=== PATIENT | male | born 1975 | race Hispanic/Latino ===

== ENCOUNTER 2020-10-24 11:04 | Observation (INO) | payer OTHER ==
--- NOTE | 2020-10-24 11:10 | Event Note ---
ED Screening Note ED Screening Note: 45-year-old male with past medical history of A. 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 He states that he is currently taking Zithromax and began having palpitations went to follow-up with his with his barrel waterer and was found to have A. fib with RVR. Currently states he gets mild lightheadedness when he changes his position but no chest pain or palpitation hemoptysis no hematemesis no nausea vomiting. This initial assessment/diagnostic orders/clinical plan/treatment(s) is/are subject to change based on patients health status, clinical progression and re- assessment by fellow clinical providers in the ED. Further treatment and workup at subsequent clinical providers discretion. Patient/guardian urged not to elope from the ED as their condition may be serious if not clinically assessed and managed. Initial orders include: Chest pain will admit obtain labs and repeat EKG and rate control his A. fib
--- NOTE | 2020-10-24 11:31 | Emergency Department Report ---
ED Chest Pain HPI - General Chief Complaint: Arrhythmia/Palpitations Stated Complaint: AFIB Time Seen by Provider: 10/24/20 11:21 Source: patient Mode of arrival: Ambulatory Limitations: No Limitations - History of Present Illness Initial Comments: This is a 45-year-old male presents to the emergency department, sent in by Dr. Chavez, after the patient was found to be in atrial fibrillation with RVR. The patient does have a history of paroxysmal atrial fibrillation but the patient says that it has been a long time since he had a heart rate as fast as today. Patient woke up with some palpitations but he denies any chest pain, shortness of breath. Today was the first day that he has seen Dr. Chavez who previously saw someone from [facility] cardiology. He denies any tobacco or illicit drug use. The patient says that the first time he experienced the atrial fibrillation was after consuming a large amount of caffeine. Sometimes it is triggered by dark chocolate, or alcohol, which he only consumes sparingly. Sometimes the patient says that he will feel these palpitations but that they will go away shortly after they began without any medication or intervention and this is happened about 2 times in the past 6 months. He denies any lower extremity swelling, fever, nausea, vomiting, back pain or diaphoresis. - Related Data Allergies Allergy/AdvReac Type Severity Reaction Status Date / Time amoxicillin [From Augmentin] AdvReac Vomiting Verified 10/24/20 11:09 clavulanic acid AdvReac Vomiting Verified 10/24/20 11:09 [From Augmentin] Heart Score - HEART Score History: Slightly suspicious EKG: Non-specific Age: 45-65 Risk factors: No known risk factors Troponin: < normal limit HEART Score: 2 - Critical Actions Critical Actions: 0-3 pts:0.9-1.7%risk of adverse cardiac event.Candidate for discharge ED Review of Systems ROS: Stated complaint: AFIB Other details as noted in HPI Comment: All other systems reviewed and negative Constitutional: denies: chills, fever Eyes: denies: eye pain, vision change ENT: denies: ear pain, throat pain Respiratory: denies: cough, shortness of breath Cardiovascular: palpitations. denies: chest pain Gastrointestinal: denies: abdominal pain, vomiting Genitourinary: denies: dysuria, discharge Musculoskeletal: denies: back pain, arthralgia Skin: denies: rash, lesions Neurological: denies: headache, weakness ED Past Medical Hx - Social History Smoking Status: Never Smoker Substance Use Type: None ED Physical Exam - General Limitations: No Limitations - Other Other exam information: GENERAL: The patient is well-developed well-nourished. HENT: Normocephalic. Atraumatic. Patient has moist mucous membranes. EYES: Extraocular motions are intact. NECK: Supple. Trachea is midline. CHEST/LUNGS: Clear to auscultation. There is no respiratory distress noted. HEART/CARDIOVASCULAR: Irregular rhythm. Moderate tachycardia. ABDOMEN: Abdomen is soft, nontender. Patient has normal bowel sounds. SKIN: Skin is warm and dry. NEURO: The patient is awake, alert, and oriented. The patient is cooperative. The patient has no focal neurologic deficits. Normal speech. MUSCULOSKELETAL: There is no tenderness or deformity. There is no limitation range of motion. ED Course Vital Signs 10/24/20 10/24/20 10/24/20 11:48 11:56 13:25 Pulse Rate 140 H 122 H 143 H Respiratory 14 15 Rate Blood Pressure 105/76 Blood Pressure 105/76 97/72 [Left] O2 Sat by Pulse 99 98 Oximetry - Consultations Consultation #1: 10/24/20 14:18 Patient was seen by Dr. Barney in the emergency department. EDUARDA score - Eduarda Score Age > 65: (0) No Aspirin use within the Past 7 Days: (0) No 3 or more CAD Risk Factors: (0) No 2 or more Angina events in past 24 hrs: (0) No Known CAD with more than 50% Stenosis: (0) No Elevated Cardiac Markers: (0) No ST Deviation Greater than 0.5mm: (0) No EDUARDA Score: 0 ED Medical Decision Making - Lab Data Result diagrams: 10/24/20 11:18 10/24/20 11:18 Lab Results 10/24/20 10/24/20 10/24/20 Range/Units 11:18 11:18 11:18 WBC 9.7 (4.5-11.0) K/mm3 RBC 5.33 H (3.65-5.03) M/mm3 Hgb 16.5 H (11.8-15.2) gm/dl Hct 47.9 H (35.5-45.6) % MCV 90 (84-94) fl MCH 31 (28-32) pg MCHC 35 H (32-34) % RDW 13.1 L (13.2-15.2) % Plt Count 284 (140-440) K/mm3 Lymph % (Auto) 27.3 (13.4-35.0) % [place] % (Auto) 11.4 H (0.0-7.3) % Eos % (Auto) 1.3 (0.0-4.3) % Baso % (Auto) 0.9 (0.0-1.8) % Lymph # (Auto) 2.6 (1.2-5.4) K/mm3 [place] # (Auto) 1.1 H (0.0-0.8) K/mm3 Eos # (Auto) 0.1 (0.0-0.4) K/mm3 Baso # (Auto) 0.1 (0.0-0.1) K/mm3 Seg Neutrophils % 59.1 (40.0-70.0) % Seg Neutrophils # 5.7 (1.8-7.7) K/mm3 PT 13.0 (12.2-14.9) Sec. INR 0.99 (0.87-1.13) APTT 33.4 (24.2-36.6) Sec. Sodium 140 (137-145) mmol/L Potassium 4.3 (3.6-5.0) mmol/L Chloride 102.8 (98-107) mmol/L Carbon Dioxide 31 H (22-30) mmol/L Anion Gap 11 mmol/L BUN 13 (9-20) mg/dL Creatinine 1.0 (0.8-1.3) mg/dL Estimated GFR > 60 ml/min BUN/Creatinine Ratio 13 % Glucose 106 H (75-100) mg/dL Calcium 9.0 (8.4-10.2) mg/dL Troponin T (0.00-0.029) ng/mL TSH (0.270-4.200) mlU/mL 10/24/20 10/24/20 Range/Units 11:18 11:40 WBC (4.5-11.0) K/mm3 RBC (3.65-5.03) M/mm3 Hgb (11.8-15.2) gm/dl Hct (35.5-45.6) % MCV (84-94) fl MCH (28-32) pg MCHC (32-34) % RDW (13.2-15.2) % Plt Count (140-440) K/mm3 Lymph % (Auto) (13.4-35.0) % [place] % (Auto) (0.0-7.3) % Eos % (Auto) (0.0-4.3) % Baso % (Auto) (0.0-1.8) % Lymph # (Auto) (1.2-5.4) K/mm3 [place] # (Auto) (0.0-0.8) K/mm3 Eos # (Auto) (0.0-0.4) K/mm3 Baso # (Auto) (0.0-0.1) K/mm3 Seg Neutrophils % (40.0-70.0) % Seg Neutrophils # (1.8-7.7) K/mm3 PT (12.2-14.9) Sec. INR (0.87-1.13) APTT (24.2-36.6) Sec. Sodium (137-145) mmol/L Potassium (3.6-5.0) mmol/L Chloride (98-107) mmol/L Carbon Dioxide (22-30) mmol/L Anion Gap mmol/L BUN (9-20) mg/dL Creatinine (0.8-1.3) mg/dL Estimated GFR ml/min BUN/Creatinine Ratio % Glucose (75-100) mg/dL Calcium (8.4-10.2) mg/dL Troponin T < 0.010 (0.00-0.029) ng/mL TSH 3.810 (0.270-4.200) mlU/mL - EKG Data -: EKG Interpreted by Me - EKG Data Interpretation: other (Atrial fibrillation with a rate of 142 bpm, normal axis, Q waves to the septal leads. No ST elevation myocardial infarction.) - Radiology Data Radiology results: image reviewed interpreted by me: Chest x-ray does not show any acute process. There are no pleural effusions, obvious pneumonia and there is no pneumothorax. No significant cardiomegaly. - Medical Decision Making This patient was sent in by his paperhanger pipe after he was found to be in atrial fibrillation with RVR. The patient does have some history of paroxysmal A. fib but it has been a while since he was in sustained A. fib. The patient's complaint was palpitations but he denies any chest pain. EKG here also shows atrial fibrillation with RVR with a heart rate of about 140. The patient was seen by myself and then seen by cardiology in the emergency department. He was given a dose of IV Cardizem which did help with rate control with a heart rate of about 90 to 115 bpm, but then tachycardia came back. Cardiology requested the patient be placed on amiodarone so he was given a 150 mg bolus followed by initiation of the amiodarone drip. Chest x-ray does not show any pneumonia, pleural effusions, pneumothorax, or any other acute process. The patient's labs have been unremarkable thus far including CBC, metabolic panel and a negative first troponin. The patient will be admitted to the hospital for further evaluation and treatment was accepted for admission by the hospitalist, Dr. Fuentes. Critical Care Time: Yes Critical care time in (mins) excluding proc time.: 35 Critical care attestation.: If time is entered above; I have spent that time in minutes in the direct care of this critically ill patient, excluding procedure time. Due to the immediate potential for life-threatening deterioration due to underlying cardiac condition, I spent 35 minutes of critical care time with the patient. Critical Care Time: 35 minutes ED Disposition Clinical Impression: Paroxysmal atrial fibrillation with RVR, Palpitations Disposition: OP ADMIT IP TO THIS HOSP Is pt being admited?: Yes Condition: Fair Time of Disposition: 12:14
[2020-10-24 11:33] LABS: Basophils # (Auto) 0.1 K/mm3 (0.0-0.1); Basophils % (Auto) 0.9 % (0.0-1.8); Eosinophils # (Auto) 0.1 K/mm3 (0.0-0.4); Eosinophils % (Auto) 1.3 % (0.0-4.3); Hematocrit 47.9 % (35.5-45.6); Hemoglobin 16.5 gm/dl (11.8-15.2); Lymphocytes # (Auto) 2.6 K/mm3 (1.2-5.4); Lymphocytes % (Auto) 27.3 % (13.4-35.0); Mean Corpuscular HGB Conc 35 % (32-34); Mean Corpuscular Volume 90 fl (84-94); Monocytes # (Auto) 1.1 K/mm3 (0.0-0.8); Monocytes % (Auto) 11.4 % (0.0-7.3); Platelet Count 284 K/mm3 (140-440); Red Blood Count 5.33 M/mm3 (3.65-5.03); Red Cell Distribution Width 13.1 % (13.2-15.2)
--- NOTE | 2020-10-24 11:35 | Consultation ---
History of Present Illness Consult date: 10/24/20 Requesting physician: DIAMOND DUMONT Consult reason: atrial fibrillation History of present illness: The pt is a 45YO male with a past medical history of atrial fibrillation. He was seen in our office today (old new pt) by Dr. Javier Chavez with c/o palpitations and was found to be in AFib RVR HR 170s and was thus referred to [facility] ED for further eval/management. Pt reports a remote history of palpitations and presumed atrial fibrillation precipitated by energy drinks in 2018 - he was seen in our office by Dr. Borrero. Pt states that in the past, he has taken PO cardizem on an as needed basis which has controlled his arrhythmia. Pt reports that this morning, he awoke with palpitations and knew he was "back in AFib". He denies any chest pain, SOB, n/v, diaphoresis, dizziness or syncope. tte done 10/2017 showed EF 55%, no significant abnormalities. Treadmill stress test done 10/2017 showed very good exercise tolerance, negative for angina or ischemia, pt c/o palpitations and was noted to have isolated occasional PVCs which were thought to have caused palpitations. CCTA done 10/2017 showed calcium score of 0. Past History Past Medical History: atrial fib Medications and Allergies Allergies Allergy/AdvReac Type Severity Reaction Status Date / Time amoxicillin [From Augmentin] AdvReac Vomiting Verified 10/24/20 11:09 clavulanic acid AdvReac Vomiting Verified 10/24/20 11:09 [From Augmentin] Review of Systems Constitutional: no weight loss, no weight gain, no fever, no chills, no sweats Ears, nose, mouth and throat: no ear pain, no nose pain, no sinus pressure, no sinus pain Cardiovascular: palpitations, rapid/irregular heart beat, no chest pain, no orthopnea, no edema, no syncope, no shortness of breath, no dyspnea on exertion, no high blood pressure, no leg edema Respiratory: no cough, no shortness of breath, no dyspnea on exertion, no congestion, no wheezing, no pain on inspiration Gastrointestinal: no abdominal pain, no nausea, no vomiting, no diarrhea, no constipation, no change in bowel habits Genitourinary Male: no dysuria, no hematuria, no flank pain, no discharge, no urinary frequency, no urinary hesitancy Musculoskeletal: no neck stiffness, no neck pain, no shooting arm pain, no arm numbness/tingling, no low back pain, no shooting leg pain Integumentary: no rash, no pruritis, no redness, no sores, no wounds Neurological: no head injury, no paralysis, no weakness, no parathesias, no numbness, no tingling, no seizures, no syncope Psychiatric: no anxiety Endocrine: no cold intolerance, no heat intolerance Hematologic/Lymphatic: no easy bruising Allergic/Immunologic: no urticaria Physical Examination General appearance: no acute distress HEENT: Positive: PERRL, Normocephaly, Mucus Membranes Moist Neck: Positive: neck supple, trachea midline Cardiac: Positive: irregularly irregular, S1/S2 Lungs: Positive: Decreased Breath Sounds Neuro: Positive: Grossly Intact Abdomen: Negative: Tender Skin: Negative: Rash Musculoskeletal: No Pain Extremities: Absent: edema Results 10/24/20 11:18 10/24/20 11:18 - Imaging and Cardiology Echo: report reviewed ( 10/2017 showed EF 55%, no significant abnormalities. ) EKG: report reviewed, image reviewed EKG interpretations - Telemetry EKG Rhythm: Atrial Fibrillation - EKG Supraventricular dysrhythmia: atrial fibrillation Assessment and Plan Pt presents with AFib RVR - h/o palpitations and presumed paroxysmal AFib precipitated by energy drinks in 2018. Cardizem IV x 1 dose given - HR remains in 120s with SBP 100s. Optimize HR - initiate IV amiodarone. Pt with current CHADS score of 0 and thus no indication for initiation of systemic AC. Obtain tte. Cont observation on telemetry overnight. Will follow. The patient has been seen in conjunction with Dr. Barney who agrees with the assessment and plan of care. - Patient Problems (1) Paroxysmal atrial fibrillation with RVR Current Visit: Yes Status: Acute
[2020-10-24] MEDS ORDERED: dilTIAZem 25 MG/5 ML INJ IV ONE (11:38)
[2020-10-24] MEDS ORDERED: SODIUM CHLORIDE 0.9% 1000 ML 1,000 ML IV ONE (11:38)
[2020-10-24 11:48] LABS: INR 0.99 (0.87-1.13); Partial Thromboplastin Time 33.4 Sec. (24.2-36.6)
[2020-10-24 12:00] LABS: BUN/Creatinine Ratio 13; Blood Urea Nitrogen 13 mg/dL (9-20); Hemolysis Index 4
--- NOTE | 2020-10-24 13:04 | XRay Report ---
CHEST 1 VIEW INDICATION / CLINICAL INFORMATION: Palpitations. COMPARISON: None available. FINDINGS: SUPPORT DEVICES: None. HEART / MEDIASTINUM: No significant abnormality. LUNGS / PLEURA: No significant pulmonary or pleural abnormality. No pneumothorax. ADDITIONAL FINDINGS: No significant additional findings. IMPRESSION: No acute pulmonary or pleural abnormality Signer Name: Xu Knight MD FACR Signed: 10/24/2020 1:00 PM Workstation Name: [id number]
[2020-10-24] MEDS ORDERED: AMIODARONE 150 MG in DEXTROSE 5% IN WATER 97 ML IV ONE (13:30)
[2020-10-24] MEDS ORDERED: AMIODARONE 900 MG in DEXTROSE 5% IN WATER 482 ML IV SCH (14:00)
--- NOTE | 2020-10-24 23:08 | History and Physical Report ---
History of Present Illness Date of examination: 10/24/20 Date of admission: 10/24/20 12:14 Chief complaint: Palpitations since carver hand History of present illness: This is a 45-year-old male presents to the emergency department, sent in by Dr. Chavez, after the patient was found to be in atrial fibrillation with RVR. The patient does have a history of paroxysmal atrial fibrillation but the patient says that it has been a long time since he had a heart rate as fast as today. Patient woke up with some palpitations but he denies any chest pain, sh ortness of breath. Today was the first day that he has seen Dr. Chavez who previously saw someone from [facility] cardiology. He denies any tobacco or illicit drug use. The patient says that the first time he experienced the atrial fibrillation was after consuming a large amount of caffeine. Sometimes it is triggered by dark chocolate, or alcohol, which he only consumes sparingly. Sometimes the patient says that he will feel these palpitations but that they will go away shortly after they began without any medication or intervention and this is happened about 2 times in the past 6 months. He denies any lower extremity swelling, fever, nausea, vomiting, back pain or diaphoresis. Heart Score - HEART Score History: Slightly suspicious EKG: Non-specific Age: 45-65 Risk factors: No known risk factors Troponin: < normal limit HEART Score: 2 - Critical Actions Critical Actions: 0-3 pts:0.9-1.7%risk of adverse cardiac event.Candidate for discharge past medical history None past surgical history None Family history HTN - Social History Smoking Status: Never Smoker Substance Use Type: None Review of Systems ROS: Stated complaint: AFIB Other details as noted in HPI Comment: All other systems reviewed and negative Constitutional: denies: chills, fever Eyes: denies: eye pain, vision change ENT: denies: ear pain, throat pain Respiratory: denies: cough, shortness of breath Cardiovascular: palpitations. denies: chest pain Gastrointestinal: denies: abdominal pain, vomiting Genitourinary: denies: dysuria, discharge Musculoskeletal: denies: back pain, arthralgia Skin: denies: rash, lesions Neurological: denies: headache, weakness Past History Past Medical History: atrial fib Medications and Allergies Allergies Allergy/AdvReac Type Severity Reaction Status Date / Time amoxicillin [From Augmentin] AdvReac Vomiting Verified 10/24/20 11:09 azithromycin [From Zithromax] AdvReac Unknown Verified 10/24/20 15:53 clavulanic acid AdvReac Vomiting Verified 10/24/20 11:09 [From Augmentin] Home Medications Medication Instructions Recorded Confirmed Last Taken Type No Known Home Medications [No 10/24/20 10/24/20 Unknown History Reported Home Medications] Active Meds: Active Medications Amiodarone HCl 900 mg/ (Dextrose) 500 mls @ 33.333 mls/hr IV DIRECT LEVON; Protocol Last Titration: 10/24/20 20:10 Dose: 0.5 mg/min, 16.667 mls/hr Documented by: Exam - Constitutional Vitals: Temp Pulse Resp BP Pulse Ox 98.6 F 94 H 16 93/58 96 10/24/20 20:03 10/24/20 20:03 10/24/20 20:03 10/24/20 20:03 10/24/20 20:03 General appearance: Present: no acute distress, well-nourished - EENT Eyes: Present: PERRL ENT: hearing intact, clear oral mucosa - Neck Neck: Present: supple, normal ROM - Respiratory Respiratory effort: normal Respiratory: bilateral: CTA - Cardiovascular Rhythm: irregularly irregular Heart Sounds: Present: S1 & S2. Absent: rub, click - Extremities Extremities: no ischemia, pulses symmetrical, No edema Peripheral Pulses: within normal limits - Abdominal General gastrointestinal: Present: soft, non-tender, non-distended, normal bowel sounds Male genitourinary: Present: normal - Integumentary Integumentary: Present: clear, warm, dry - Musculoskeletal Musculoskeletal: gait normal, strength equal bilaterally - Psychiatric Psychiatric: appropriate mood/affect, intact judgment & insight - Neurologic Neurologic: CNII-XII intact, moves all extremities - Allied Health Allied health notes reviewed: nursing, case management HEART Score - HEART Score History: Moderately suspicious EKG: Non-specific Age: 45-65 Risk factors: No known risk factors Troponin: Troponin T < 0.010 ng/mL (0.00-0.029) 10/24/20 11:18 Troponin: < normal limit HEART Score: 3 - Critical Actions Critical Actions: 0-3 pts:0.9-1.7%risk of adverse cardiac event.Candidate for discharge Results - Labs CBC & Chem 7: 10/24/20 11:18 10/25/20 04:48 Labs: Laboratory Last Values WBC 9.7 K/mm3 (4.5-11.0) 10/24/20 11:18 RBC 5.33 M/mm3 (3.65-5.03) H 10/24/20 11:18 Hgb 16.5 gm/dl (11.8-15.2) H 10/24/20 11:18 Hct 47.9 % (35.5-45.6) H 10/24/20 11:18 MCV 90 fl (84-94) 10/24/20 11:18 MCH 31 pg (28-32) 10/24/20 11:18 MCHC 35 % (32-34) H 10/24/20 11:18 RDW 13.1 % (13.2-15.2) L 10/24/20 11:18 Plt Count 284 K/mm3 (140-440) 10/24/20 11:18 Lymph % (Auto) 27.3 % (13.4-35.0) 10/24/20 11:18 [place] % (Auto) 11.4 % (0.0-7.3) H 10/24/20 11:18 Eos % (Auto) 1.3 % (0.0-4.3) 10/24/20 11:18 Baso % (Auto) 0.9 % (0.0-1.8) 10/24/20 11:18 Lymph # (Auto) 2.6 K/mm3 (1.2-5.4) 10/24/20 11:18 [place] # (Auto) 1.1 K/mm3 (0.0-0.8) H 10/24/20 11:18 Eos # (Auto) 0.1 K/mm3 (0.0-0.4) 10/24/20 11:18 Baso # (Auto) 0.1 K/mm3 (0.0-0.1) 10/24/20 11:18 Seg Neutrophils % 59.1 % (40.0-70.0) 10/24/20 11:18 Seg Neutrophils # 5.7 K/mm3 (1.8-7.7) 10/24/20 11:18 PT 13.0 Sec. (12.2-14.9) 10/24/20 11:18 INR 0.99 (0.87-1.13) 10/24/20 11:18 APTT 33.4 Sec. (24.2-36.6) 10/24/20 11:18 Sodium 140 mmol/L (137-145) 10/24/20 11:18 Potassium 4.3 mmol/L (3.6-5.0) 10/24/20 11:18 Chloride 102.8 mmol/L (98-107) 10/24/20 11:18 Carbon Dioxide 31 mmol/L (22-30) H 10/24/20 11:18 Anion Gap 11 mmol/L 10/24/20 11:18 BUN 13 mg/dL (9-20) 10/24/20 11:18 Creatinine 1.0 mg/dL (0.8-1.3) 10/24/20 11:18 Estimated GFR > 60 ml/min 10/24/20 11:18 BUN/Creatinine Ratio 13 % 10/24/20 11:18 Glucose 106 mg/dL (75-100) H 10/24/20 11:18 Calcium 9.0 mg/dL (8.4-10.2) 10/24/20 11:18 Troponin T < 0.010 ng/mL (0.00-0.029) 10/24/20 11:18 TSH 3.810 mlU/mL (0.270-4.200) 10/24/20 11:40 Short CBC 10/24/20 Range/Units 11:18 WBC 9.7 (4.5-11.0) K/mm3 Hgb 16.5 H (11.8-15.2) gm/dl Hct 47.9 H (35.5-45.6) % Plt Count 284 (140-440) K/mm3 BMP 10/24/20 10/25/20 11:18 04:48 Sodium 140 140 Potassium 4.3 4.1 Chloride 102.8 104.1 Carbon Dioxide 31 H 29 BUN 13 14 Creatinine 1.0 0.9 Glucose 106 H 101 H Calcium 9.0 9.0 Cardiac Enzymes 10/24/20 Range/Units 11:18 Troponin T < 0.010 (0.00-0.029) ng/mL Liver Function 10/25/20 Range/Units 04:48 Total Bilirubin 0.50 (0.1-1.2) mg/dL AST 20 (5-40) units/L ALT 20 (7-56) units/L Alkaline Phosphatase 78 (35-129) units/L Albumin 3.7 L (3.9-5) g/dL - Imaging and Cardiology EKG: report reviewed (A. fib with RVR heart rate of 160/min) [place]o/IV: Voiding Method Toilet Assessment and Plan Advance Directives: Yes (Full code) VTE prophylaxis?: Chemical Plan of care discussed with patient/family: Yes - Patient Problems (1) Atrial fibrillation with RVR Current Visit: Yes Status: Acute Plan to address problem: Patient initiated on amiodarone drip in the emergency room Heart rate has come down to 103 but still in atrial fibrillation Will defer to cardiology regarding cardioversion Cardiology to start Eliquis if necessary Patient also initiated on low-dose of diltiazem (2) Acute coronary syndrome Current Visit: Yes Status: Acute Plan to address problem: Echocardiogram for now Lexiscan Lexiscan (ordered (3) DVT prophylaxis Current Visit: Yes Status: Acute Plan to address problem: On anticoagulation and GI prophylaxis
[2020-10-24] MEDS ORDERED: ONDANSETRON 4 MG/2 ML INJ IV PRN (23:10)
[2020-10-24] MEDS ORDERED: ACETAMINOPHEN 325 MG TAB PO PRN (23:10)
[2020-10-24] MEDS ORDERED: HYDROmorphone 1 MG/1 ML INJ IV PRN (23:10)
[2020-10-24] MEDS ORDERED: oxyCODONE /ACETAMINOPHEN 5-325MG TAB PO PRN (23:10)
[2020-10-24] MEDS ORDERED: METOCLOPRAMIDE 10 MG/2 ML INJ IV PRN (23:10)
[2020-10-24] MEDS ORDERED: dilTIAZem CD 120 MG CAP PO SCH (23:40)
[2020-10-25] MEDS: HEPARIN 5,000 UNIT/1 ML VIAL SUB-Q SCH ×2 (00:49→12:23)
[2020-10-25 05:36] LABS: Alanine Aminotransferase 20 units/L (7-56); Albumin 3.7 g/dL (3.9-5); BUN/Creatinine Ratio 16; Blood Urea Nitrogen 14 mg/dL (9-20); Hemolysis Index 8
[2020-10-25] MEDS ORDERED: FAMOTIDINE 20 MG TAB PO SCH (10:00)
[2020-10-25] MEDS ORDERED: AMIODARONE 200 MG TAB PO SCH (11:00)
--- NOTE | 2020-10-25 11:22 | Progress Note ---
Assessment and Plan tte reviewed - EF 50-55%, trace MR, trace TR. tele reviewed - pt was in AFib CVR overnight and was noted to convert to NSR this AM, currently maintaining NSR. amio gtt infusing. Initiate PO amio 200mg daily now. D/c IV amio 2 hours following first PO amio dose. Encourage increased activity and ambulation today. Pending pt maintains NSR with activity and once IV amio is discontinued, pt may discharge home this afternoon from cardiology standpoint on PO amio 200mg daily. Pt with current CHADS score of 0 and thus no indication for initiation of systemic AC in regards to paroxysmal AFib. Follow up in our [place] office with Dr. Javier Chavez on 11/07/2020 @ 3:00PM. The patient has been seen in conjunction with Dr. Barney who agrees with the assessment and plan of care. - Patient Problems (1) Paroxysmal atrial fibrillation with RVR Current Visit: Yes Status: Acute Plan to address problem: --> NSR Subjective Date of service: 10/25/20 Principal diagnosis: AFib Interval history: pt resting in bed, feeling better. tele reviewed - was in AFib CVR overnight and was noted to convert to NSR this AM, currently maintaining NSR. amio gtt infusing. Objective Last Vital Signs Temp 98.2 F 10/25/20 04:14 Pulse 97 H 10/25/20 04:14 Resp 16 10/25/20 04:14 BP 97/63 10/25/20 04:28 Pulse Ox 95 10/25/20 04:14 - Physical Examination General: No Apparent Distress HEENT: Positive: PERRL, Normocephaly, Mucus Membranes Moist Neck: Positive: neck supple, trachea midline Cardiac: Positive: Reg Rate and Rhythm, S1/S2 Lungs: Positive: clear to auscultation Neuro: Positive: Grossly Intact Abdomen: Negative: Tender Skin: Negative: Rash Musculoskeletal: No Pain Extremities: Absent: edema - Labs and Meds Cardiac Enzymes 10/25/20 Range/Units 04:48 AST 20 (5-40) units/L Coagulation 10/24/20 Range/Units 11:18 PT 13.0 (12.2-14.9) Sec. INR 0.99 (0.87-1.13) APTT 33.4 (24.2-36.6) Sec. CBC 10/24/20 Range/Units 11:18 WBC 9.7 (4.5-11.0) K/mm3 RBC 5.33 H (3.65-5.03) M/mm3 Hgb 16.5 H (11.8-15.2) gm/dl Hct 47.9 H (35.5-45.6) % Plt Count 284 (140-440) K/mm3 Lymph # (Auto) 2.6 (1.2-5.4) K/mm3 [place] # (Auto) 1.1 H (0.0-0.8) K/mm3 Eos # (Auto) 0.1 (0.0-0.4) K/mm3 Baso # (Auto) 0.1 (0.0-0.1) K/mm3 Comprehensive Metabolic Panel 10/24/20 10/25/20 Range/Units 11:18 04:48 Sodium 140 140 (137-145) mmol/L Potassium 4.3 4.1 (3.6-5.0) mmol/L Chloride 102.8 104.1 (98-107) mmol/L Carbon Dioxide 31 H 29 (22-30) mmol/L BUN 13 14 (9-20) mg/dL Creatinine 1.0 0.9 (0.8-1.3) mg/dL Glucose 106 H 101 H (75-100) mg/dL Calcium 9.0 9.0 (8.4-10.2) mg/dL AST 20 (5-40) units/L ALT 20 (7-56) units/L Alkaline Phosphatase 78 (35-129) units/L Total Protein 6.7 (6.3-8.2) g/dL Albumin 3.7 L (3.9-5) g/dL - Imaging and Cardiology EKG: report reviewed (Dari hurtado with RVR heart rate of 160/min) Echo: report reviewed ( 10/2017 showed EF 55%, no significant abnormalities. ) - Telemetry EKG Rhythm: Sinus Rhythm
--- NOTE | 2020-10-25 13:05 | Discharge Summary ---
<SULLYJONO JimmieRadha - Last Filed: 10/25/20 13:10> Providers - Providers Date of Admission: 10/24/20 12:14 Date of discharge: 10/25/20 Attending physician: YOGESH POWER 10/24/20 23:10 Consult to Physician [CONS] Routine Comment: Consulting Provider: ITZEL URIOSTEGUI Physician Instructions: Reason For Exam: A. fib with RVR Hospitalization Condition: Stable Hospital course: This is a 45YO male with atrial fibrillation who was seen at the [facility] on 10/[address] Javier Yeh with complains of palpitations and was found to be in AFib RVR with HR 170s and was thus referred to [facility] ED for further evaluation and management. Per cardiology his cardiac workup included a TTE on 10/2017 which showed EF of 55% with no significant abnormalities, treadmill stress test on 10/2017 which showed very good exercise tolerance and was negative for angina or ischemia but he complained of palpitations and was noted to have isolated occasional PVCs which were thought to have caused palpitations, and a CCTA done 10/2017 showed calcium score of 0. Patient was admitted to he hospitalist service with a consult to cardiology and was initiated on an amiodorone drip. He converted to normal sinus rhythm this morning and has been transitioned to oral amiodorone. Per cardiology his NIRMAL score is 0 therefore there is no indication for systemic anticoagulation at this time. He will be discharged oral amiodorone for his atrial fibrillation. He will need to follow up with his primary care physician with in 1-2 weeks of discharge and he will need to followup with Dr. Chrissy Yeh at the [place] office at 11/07/2020 @ 3:00 PM. (1) Atrial fibrillation with RVR Current Visit: Yes Status: Acute Plan to address problem: -Patient initiated on amiodarone drip in the emergency room -S/P amiodarone drip -Cardiology consult, appreciate recommendations -Transitioned to oral amiodarone -Per cardiology CHADS2 score is 0 therefore no indication for systemic anticoagulation -Follow-up with cardiology on 11/07/2020 at 3 PM in their [place] office with Dr. Chrissy Yeh Disposition: DC-01 TO HOME OR SELFCARE Time spent for discharge: 35 Core Measure Documentation - Palliative Care Palliative Care/ Comfort Measures: Not Applicable - Core Measures Any of the following diagnoses?: none Exam - Constitutional Vitals: Temp Pulse Resp BP Pulse Ox 98.2 F 85 16 97/63 95 10/25/20 04:14 10/25/20 10:00 10/25/20 04:14 10/25/20 04:28 10/25/20 04:14 General appearance: Present: no acute distress - EENT Eyes: Present: PERRL, EOM intact ENT: hearing intact, clear oral mucosa, dentition normal - Neck Neck: Present: supple, normal ROM - Respiratory Respiratory effort: normal Respiratory: bilateral: CTA - Cardiovascular Rhythm: regular Heart Sounds: Present: S1 & S2. Absent: systolic murmur, diastolic murmur - Extremities Extremities: no ischemia, pulses intact, pulses symmetrical, No edema, normal temperature, normal color, Full ROM Peripheral Pulses: within normal limits - Abdominal General gastrointestinal: Present: soft, non-tender, non-distended, normal bowel sounds - Integumentary Integumentary: Present: clear, warm, dry - Musculoskeletal Musculoskeletal: strength equal bilaterally - Psychiatric Psychiatric: appropriate mood/affect, intact judgment & insight, memory intact, cooperative - Neurologic Neurologic: CNII-XII intact, no focal deficits, moves all extremities - Allied Health Allied health notes reviewed: nursing Plan Activity: advance as tolerated Diet: low fat, low cholesterol Special Instructions: other Additional Instructions: Present to nearest emergency department contact your primary care physician if experience worsening symptoms. You will be discharged with medical management for your atrial fibrillation. You need to follow-up with a [employer] [employer] [facility] on the date and time which has been provided to you. You need to follow-up with your primary care physician within 1 to 2 weeks of discharge. Follow up with: PRIMARY CARE, [Referring] - 3-5 Days KAVITHA YEH MD [Staff Physician] - 7 Days Prescriptions: Amiodarone [Cordarone 200 MG TAB] 200 mg PO DAILY #30 tablet <YOGESH POWER - Last Filed: 10/25/20 17:20> Providers - Providers Date of Admission: 10/24/20 12:14 Attending physician: YOGESH POWER 10/24/20 23:10 Consult to Physician [CONS] Routine Comment: Consulting Provider: ITZEL URIOSTEGUI Physician Instructions: Reason For Exam: A. fib with RVR Exam - Constitutional Vitals: Temp Pulse Resp BP Pulse Ox 99.4 F 87 18 100/58 96 10/25/20 15:14 10/25/20 15:14 10/25/20 15:14 10/25/20 15:14 10/25/20 15:14
[2020-10-25 17:18] VITALS: BP 100/58
== END 2020-10-25 18:36 | disposition home or self-care (01) ==
LOC: ED 11:04 → 4A 12:14
PROVIDERS: ADMIT Internal Medicine; ATTEND Internal Medicine
DX: I24.9 Acute ischemic heart disease, unspecified (principal); I48.20 Chronic atrial fibrillation, unspecified
CPT/HCPCS: 36415; 71045; 80048; 80053; 83036; 84443; 84484; 85025; 85610; 85730; 93005; 93306; 96361; 96365; 96372; 96375; 99291; G0378; J0282; J1644; J7030; J7060